=== PATIENT | female | born 1970 | race Caucasian/White ===

== ENCOUNTER 2018-02-07 05:29 | Inpatient (IN) | payer MEDICAID ==
[2018-01-31 13:25] LABS: HEMATOCRIT 34.2 % (36.0-47.0); MEAN CORPUSCULAR HEMOGLOBIN 25.9 pg (27.0-33.4); MEAN CORPUSCULAR VOLUME 81 fl (80-97); PLATELET COUNT 221 10^3/uL (150-450); RED BLOOD COUNT 4.23 10^6/uL (3.72-5.28); RED CELL DISTRIBUTION WIDTH 16.6 % (11.5-14.0); WHITE BLOOD COUNT 6.2 10^3/uL (4.0-10.5)
[2018-01-31 13:38] LABS: ALANINE AMINOTRANSFERASE 32 U/L (9-52); ALBUMIN 4.6 g/dL (3.5-5.0); ALKALINE PHOSPHATASE 54 U/L (38-126); ANION GAP 12 (5-19); ASPARTATE AMINO TRANSFERASE 21 U/L (14-36); BILIRUBIN,DIRECT 0.3 mg/dL (0.0-0.4); BILIRUBIN,TOTAL 0.3 mg/dL (0.2-1.3); BLOOD UREA NITROGEN 12 mg/dL (7-20); CALCIUM 9.6 mg/dL (8.4-10.2); CARBON DIOXIDE 26 mmol/L (22-30); CHLORIDE 102 mmol/L (98-107); GLUCOSE 89 mg/dL (75-110); POTASSIUM 4.2 mmol/L (3.6-5.0); SODIUM 139.7 mmol/L (137-145); TOTAL PROTEIN 7.8 g/dL (6.3-8.2)
[2018-01-31 13:39] LABS: APPEARANCE,URINE CLOUDY; BILIRUBIN,URINE NEGATIVE (NEGATIVE); COLOR,URINE YELLOW; GLUCOSE, URINE NEGATIVE (NEGATIVE); KETONES,URINE NEGATIVE (NEGATIVE); LEUKOCYTE ESTERASE,URINE NEGATIVE (NEGATIVE); NITRITE,URINE NEGATIVE (NEGATIVE); PROTEIN,URINE NEGATIVE (NEGATIVE); UROBILINOGEN,URINE NEGATIVE mg/dL (<2.0)
--- NOTE | 2018-01-31 20:57 | EKG REPORT ---
SEVERITY:- NORMAL ECG - SINUS RHYTHM : Confirmed by: Pura Robertson 31-Jan-2018 20:56:36
[~2018-02-07 05:29] MED LIST: CEFAZOLIN 2 GM/D5W RTU 2 GM/50 ML RTUPB IV PRN; LACTATED RINGERS 1000 ML IV PRN
[2018-02-07] MEDS ORDERED: MIDAZOLAM 2 MG/2 ML INJ ONE (07:01)
[2018-02-07] MEDS ORDERED: FENTANYL CITRATE INJ/PF 250 MCG/5 ML AMPULE ONE (07:01)
[2018-02-07] MEDS ORDERED: ACETAMINOPHEN 100 ML IV ONE (07:01)
[2018-02-07] MEDS ORDERED: PROPOFOL INJ 200 MG/20 ML VIAL IV ONE (07:01)
[2018-02-07] MEDS ORDERED: HYDROMORPHONE HCL INJ/PF 2 MG/ML AMPULE ONE (07:02)
[2018-02-07] MEDS ORDERED: CEFAZOLIN SODIUM 2 GM in DEXTROSE 5%-WATER 100 ML IV PRN (07:06)
[2018-02-07] MEDS ORDERED: FAMOTIDINE INJ/PF 20 MG/2 ML SDV IV ONE (07:29)
[2018-02-07] MEDS ORDERED: SCOPOLAMINE HYDROBROMIDE 1.5 MG PATCH.TD72 ONE (07:30)
[2018-02-07] MEDS ORDERED: ACETAMINOPHEN 100 ML IV PRN (07:49)
[2018-02-07] MEDS ORDERED: PROMETHAZINE HCL INJ 25 MG/1 ML VIAL IV PRN ×2 (07:49→08:21)
[2018-02-07] MEDS ORDERED: OXYCODONE-ACETAMINOPHEN 5-325 MG TABLET PO PRN (07:49)
[2018-02-07] MEDS ORDERED: ACETAMINOPHEN 325 MG TABLET PO PRN (07:49)
[2018-02-07] MEDS ORDERED: HYDROMORPHONE HCL INJ/PF 2 MG/ML AMPULE IV PRN (07:49)
[2018-02-07] MEDS ORDERED: MEPERIDINE HCL/PF INJ 25 MG/1 ML DISP.SYRIN IV PRN (08:21)
[2018-02-07] MEDS ORDERED: MORPHINE SULFATE 10 MG/ML INJ IV PRN (08:21)
[2018-02-07] MEDS ORDERED: FENTANYL CITRATE INJ/PF 100 MCG/2 ML AMPUL IV PRN ×3 (08:21)
[2018-02-07] MEDS ORDERED: DIPHENHYDRAMINE HCL 50 MG/ML VIAL IV PRN (08:21)
[2018-02-07] MEDS ORDERED: METOCLOPRAMIDE HCL INJ/PF 10 MG/2 ML SDV ONE (08:30)
[2018-02-07] MEDS ORDERED: DEXAMETHASONE SOD PHOSPHATE INJ 4 MG/1 ML VIAL ONE (08:30)
[2018-02-07] MEDS ORDERED: ROCURONIUM BROMIDE INJ 50 MG/5 ML VIAL IV ONE (08:30)
[2018-02-07] MEDS ORDERED: NEOSTIGMINE METHYLSULFATE 10 MG/10 ML VIAL ONE (08:30)
[2018-02-07] MEDS ORDERED: GLYCOPYRROLATE INJ 0.4 MG/2 ML VIAL ONE (08:30)
[2018-02-07] MEDS ORDERED: ONDANSETRON HCL INJ/PF 4 MG/2 ML SDV ONE (08:30)
[2018-02-07] MEDS ORDERED: LIDOCAINE 2% INJ-PF (20 MG/ML) 2 ML AMPUL ONE (08:30)
[2018-02-07] MEDS ORDERED: (PENDING PHARMACY ID) (Lisinopril [Lisinopril] 20 MG) PO SCH (10:00)
[2018-02-07] MEDS: FENTANYL CITRATE INJ/PF 100 MCG/2 ML AMPUL ONE ×2 (10:20→10:25)
--- NOTE | 2018-02-07 10:25 | Operative Report ---
Operative Report DATE OF SURGERY: 02/07/18 PREOPERATIVE DIAGNOSIS: Large uterine fibroids menorrhagia dysmenorrhea pelvic pain POSTOPERATIVE DIAGNOSIS: Same OPERATION: Total abdominal hysterectomy bilateral salpingectomy the ovaries were left in place SURGEON: LYNDON DOAN 1ST PLASTICS HEAT WELDER: TRUPTI CODY ANESTHESIA: GA TISSUE REMOVED OR ALTERED: Uterus and cervix fallopian tubes COMPLICATIONS: None ESTIMATED BLOOD LOSS: 500 cc INTRAOPERATIVE FINDINGS: Large uterus normal-appearing ovaries PROCEDURE: Patient was taken the OR and placed in supine position. General anesthesia was induced. Her abdomen perineum and vagina were prepared and draped in a sterile fashion and her bladder was drained with a Dent catheter. Low transverse incision was made with a knife and carried down the level of the fascia. Fascia was nicked in the midline fascial incision extended bilaterally using curved Griggs scissors. The fascia was off the rectus muscles using sharp and blunt dissection. The rectus muscles were in the midline peritoneum was elevated and the abdominal peritoneum entered without incident. The peritoneal incision was extended superiorly and inferiorly taking care not to injure bladder. The Mobius retractor was then placed. The bowel contents were packed back with 3 moist lap sponges. The uterus was grasped with a Geronimo thyroid clamp. The round ligaments were cauterized and cut with the LigaSure device. The anterior leaf of the broad ligament was incised creating a bladder flap. There was a fibroid anteriorly that we had to deal with as well. An incision was made over the fibroid and a myomectomy was done removing the anterior fibroid which allowed better exposure to the bladder and lower uterine segment. The utero-ovarian pedicles were clamped cauterized and cut with the LigaSure device. The fallopian tubes were bilaterally removed bilaterally with the LigaSure device. The uterine arteries were identified and clamped cauterized and cut with LigaSure device. Prior to this the bladder flap was continued to be developed with blunt and sharp dissection. This the bladder off the lower uterine segment and cervix. The uterine fundus was then exercised free from the cervix and passed off the field. This allowed better exposure to the pelvis and the cervix. The cervix was grasped with 2 Dorcas clamps. Her cervix was noted to be quite large and deep in the pelvis. She had a history of a lot of dyspareunia so I wondered make sure that we did remove the cervix as well. The cardinal ligaments were clamped with straight Elio clamps staying close to the cervix cut and ligated with transfixation suture of 0 Vicryl bilaterally. At this point the cervix was excised free from the vaginal cuff using scissors. This was done staying very close to the cervix. The edges of the vaginal cuff were quite grasped with Dorcas clamps. Angle sutures of 0 Vicryl were placed bilaterally. This was done incorporating anterior vaginal mucosa lateral vaginal sidewall and posterior vaginal mucosa and tied. The cuff was then closed with a running locking suture of 0 Vicryl. Closing anterior vaginal cassette 2 posterior vaginal mucosa. Some small areas of bleeding in the midline of the vaginal cuff was made hemostatic with 2 interrupted sutures of 0 Vicryl in a [id number] fashion. The pelvis was then irrigated and suctioned free of fluid. Ureters did not appear dilated at the end of the case. The urine was clear. The surgical pedicles were inspected for bleeding and hemostasis was identified. The retractor and lap sponges were then removed. The abdominal wall peritoneum was closed with a 2-0 chromic. The subfascial tissues were inspected for bleeding and the fascia was then closed with a running 0 Vicryl in 2 segments. The wound was irrigated and John's layer was closed with a 2 oh plain gut stitch and skin closed with 4-0 undyed Vicryl stitch. Patient was taken to recovery room in stable condition.
[2018-02-07] MEDS: HYDROMORPHONE HCL INJ/PF 2 MG/ML AMPULE ONE ×5 (10:40→12:10)
[2018-02-07] MEDS ORDERED: LORAZEPAM INJ 2 MG/1 ML VIAL ONE (11:05)
[2018-02-07] MEDS ORDERED: KETOROLAC TROMETHAMINE INJ/PF 30 MG/1 ML SDV ONE (11:45)
[2018-02-07] MEDS ORDERED: DIPHENHYDRAMINE HCL 50 MG/ML VIAL ONE (12:44)
[2018-02-07] MEDS ORDERED: KETOROLAC TROMETHAMINE INJ/PF 30 MG/1 ML SDV IV SCH (14:00)
[2018-02-07 16:12] LABS: HEMATOCRIT 28.7 % (36.0-47.0); HEMOGLOBIN 9.4 g/dL (12.0-15.5); MEAN CORPUSCULAR HEMOGLOBIN 26.1 pg (27.0-33.4); MEAN CORPUSCULAR HGB CONC 32.9 g/dL (32.0-36.0); MEAN CORPUSCULAR VOLUME 79 fl (80-97); PLATELET COUNT 193 10^3/uL (150-450); RED BLOOD COUNT 3.62 10^6/uL (3.72-5.28); RED CELL DISTRIBUTION WIDTH 15.5 % (11.5-14.0); WHITE BLOOD COUNT 10.7 10^3/uL (4.0-10.5)
[2018-02-07 16:38] LABS: ANION GAP 11 (5-19); BLOOD UREA NITROGEN 11 mg/dL (7-20); CALCIUM 8.8 mg/dL (8.4-10.2); CARBON DIOXIDE 25 mmol/L (22-30); CHLORIDE 104 mmol/L (98-107); GLUCOSE 116 mg/dL (75-110); POTASSIUM 4.5 mmol/L (3.6-5.0); SODIUM 139.9 mmol/L (137-145)
[2018-02-07] MEDS: DOCUSATE SODIUM 100 MG CAPSULE PO SCH (17:55)
[2018-02-07] MEDS: KETOROLAC TROMETHAMINE INJ/PF 30 MG/1 ML SDV IV SCH (17:56)
[2018-02-07] MEDS: OXYCODONE-ACETAMINOPHEN 5-325 MG TABLET PO PRN ×2 (18:28→23:20)
[2018-02-07] MEDS: RINGERS SOLUTION,LACTATED 1,000 ML IV PRN (19:23)
[2018-02-08] MEDS ORDERED: IBUPROFEN 800 MG TABLET PO SCH
[2018-02-08] MEDS: KETOROLAC TROMETHAMINE INJ/PF 30 MG/1 ML SDV IV SCH ×3 (02:04→20:20)
[2018-02-08] MEDS: SIMETHICONE 80 MG TAB.CHEW PO PRN ×2 (02:11→22:27)
[2018-02-08] MEDS: RINGERS SOLUTION,LACTATED 1,000 ML IV PRN (03:03)
[2018-02-08] MEDS: OXYCODONE-ACETAMINOPHEN 5-325 MG TABLET PO PRN ×4 (06:41→20:21)
[2018-02-08 07:07] LABS: HEMATOCRIT 25.2 % (36.0-47.0); HEMOGLOBIN 8.3 g/dL (12.0-15.5); MEAN CORPUSCULAR HEMOGLOBIN 26.2 pg (27.0-33.4); MEAN CORPUSCULAR HGB CONC 33.1 g/dL (32.0-36.0); MEAN CORPUSCULAR VOLUME 79 fl (80-97); PLATELET COUNT 169 10^3/uL (150-450); RED BLOOD COUNT 3.18 10^6/uL (3.72-5.28); RED CELL DISTRIBUTION WIDTH 15.9 % (11.5-14.0); WHITE BLOOD COUNT 8.1 10^3/uL (4.0-10.5)
--- NOTE | 2018-02-08 08:53 | PDOC PROGRESS REPORT ---
Subjective Progress Note for:: 02/08/18 Subjective:: She is doing well, tolerating a diet and ready to ambulate. Positive flatus. Reason For Visit: D25.0 SUBMUCOUS LEIOMYOMA OF UTERUS Physical Exam - Physical Exam Vital Signs: Temp Pulse Resp BP Pulse Ox 99.2 F 92 15 111/58 L 94 02/08/18 07:55 02/08/18 07:55 02/08/18 07:55 02/08/18 07:55 02/08/18 07:55 Intake & Output 02/06/18 02/07/18 02/08/18 11:59 11:59 11:59 Intake Total 2600 2000 Output Total 800 1850 Balance 1800 150 Weight 96.16 kg 91.6 kg General appearance: PRESENT: no acute distress, well-developed, well-nourished GI/Abdominal exam: PRESENT: other - Her incision is clean dry intact with positive bowel sounds Result Laboratory Results: 02/08/18 06:34 02/07/18 15:35 02/07/18 02/07/18 02/08/18 15:35 15:35 06:34 WBC 10.7 H 8.1 RBC 3.62 L 3.18 L Hgb 9.4 L 8.3 L Hct 28.7 L 25.2 L MCV 79 L 79 L MCH 26.1 L 26.2 L MCHC 32.9 33.1 RDW 15.5 H 15.9 H Plt Count 193 169 Sodium 139.9 Potassium 4.5 Chloride 104 Carbon Dioxide 25 Anion Gap 11 BUN 11 Creatinine 0.65 Est GFR ( Amer) > 60 Est GFR (Non-Af Amer) > 60 Glucose 116 H Calcium 8.8 Impressions: Doing well post op day number one Assessment & Plan - Diagnosis (1) Fibroids Qualifiers: Uterine leiomyoma location: intramural and submucous Qualified Code(s): D25.1 - Intramural leiomyoma of uterus; D25.0 - Submucous leiomyoma of uterus; D25.0 - Submucous leiomyoma of uterus Is this a current diagnosis for this admission?: Yes Plan: Ambulate today, saline lock iv, advance diet. - Time Time Spent with patient: 15-24 minutes Medications reviewed and adjusted accordingly: Yes Anticipated discharge: Home Within: within 48 hours
[2018-02-08] MEDS: DOCUSATE SODIUM 100 MG CAPSULE PO SCH ×2 (09:41→19:13)
[2018-02-08] MEDS: LISINOPRIL 10 MG TABLET PO SCH (09:49)
[2018-02-08] MEDS: CITALOPRAM HYDROBROMIDE 20 MG TABLET PO SCH (09:49)
[2018-02-08] MEDS: PRENATAL VITAMIN W DHA CAPSULE PO SCH (09:49)
[2018-02-08] MEDS ORDERED: IBUPROFEN 800 MG TABLET PO ONE (10:00)
[2018-02-08] MEDS: IBUPROFEN 800 MG TABLET PO SCH (19:13)
[2018-02-09] MEDS: IBUPROFEN 800 MG TABLET PO SCH ×3 (00:06→11:44)
[2018-02-09] MEDS: KETOROLAC TROMETHAMINE INJ/PF 30 MG/1 ML SDV IV SCH ×2 (02:36→09:17)
[2018-02-09] MEDS: OXYCODONE-ACETAMINOPHEN 5-325 MG TABLET PO PRN ×2 (02:42→09:05)
[2018-02-09] MEDS: SIMETHICONE 80 MG TAB.CHEW PO PRN (05:43)
[2018-02-09 08:54] VITALS: BP 102/63
[2018-02-09] MEDS: PRENATAL VITAMIN W DHA CAPSULE PO SCH (09:03)
[2018-02-09] MEDS: DOCUSATE SODIUM 100 MG CAPSULE PO SCH (09:04)
--- NOTE | 2018-02-09 09:06 | PDOC DISCHARGE SUMMARY ---
General - Admit/Disc Date/PCP Admission Date/Primary Care Provider: 02/07/18 05:29 LYNDON DOAN MD Discharge Date: 02/09/18 - Discharge Diagnosis (1) Fibroids Is this a current diagnosis for this admission?: Yes - Additional Information Resuscitation Status: Full Code Discharge Diet: As Tolerated, Regular Discharge Activity: Activity As Tolerated, Balance Activity w/Rest, No Lifting Over 10 Pounds, No Lifting/Push/Pulling, Pelvic Rest, No tub bath, Walk Frequently Home Medications: Alprazolam [Xanax 0.5 mg Tablet] 0.5 mg PO DAILY 01/31/18 Citalopram Hydrobromide [Celexa] 20 mg PO DAILY 01/31/18 Lisinopril 20 mg PO DAILY 01/31/18 History of Present Illness Patient complains of: Heavy menses and pelvic pain. History of Present Illness: STANISLAV TREJO is a 47 year old female She reports painful menses and dysparunia. She requests a hyterectomy. Hospital Course Hospital Course: She was admitted and underwent a RASHAD. The night of surgery she did well. Post op day one the catheter was removed and her pain was controlled with percocet. Post op day 2 she was sent home in good condition. Physical Exam - Physical Exam Vital Signs: Temp Pulse Resp BP Pulse Ox 98.3 F 73 15 102/63 98 02/09/18 08:54 02/09/18 08:54 02/09/18 08:54 02/09/18 08:54 02/09/18 08:54 Intake & Output 02/08/18 02/09/18 02/10/18 06:59 06:59 06:59 Intake Total 4600 2710 Output Total 2650 3750 Balance 1950 -1040 Weight 91.6 kg 92.6 kg General appearance: PRESENT: no acute distress, well-developed, well-nourished Vascular exam: PRESENT: normal capillary refill GI/Abdominal exam: PRESENT: other - Her dressing is dry. Positive bowel sounds. Result Laboratory Results: 02/08/18 06:34 02/07/18 15:35 Impressions: POD 2 doing well. Home to rest. no driving 2wks. pelvic rest. Plan Discharge Plan: Home. Follow up next week. Time Spent: Less than 30 Minutes
[2018-02-09] MEDS: CITALOPRAM HYDROBROMIDE 20 MG TABLET PO SCH (09:17)
[2018-02-09] MEDS: LISINOPRIL 10 MG TABLET PO SCH (09:17)
--- NOTE | 2018-04-05 21:33 | PDOC PROGRESS REPORT ---
Subjective Progress Note for:: 04/05/18 Subjective:: The removal of the tubes was for the prevention of ovarian cancer per guidelines. It had nothing to do with the pathology. Reason For Visit: D25.0 SUBMUCOUS LEIOMYOMA OF UTERUS Physical Exam - Physical Exam Vital Signs: Temp Pulse Resp BP Pulse Ox 98.3 F 73 15 102/63 98 02/09/18 08:54 02/09/18 08:54 02/09/18 08:54 02/09/18 08:54 02/09/18 08:54 Result Laboratory Results: 02/08/18 06:34 02/07/18 15:35 Assessment & Plan - Diagnosis (1) Fibroids Qualifiers: Uterine leiomyoma location: intramural and submucous Qualified Code(s): D25.1 - Intramural leiomyoma of uterus; D25.0 - Submucous leiomyoma of uterus; D25.0 - Submucous leiomyoma of uterus Is this a current diagnosis for this admission?: Yes
== END 2018-02-09 12:38 | disposition home or self-care (01) | DRG 743 ==
LOC: INOR 05:29 → 2N 14:05
PROVIDERS: ADMIT Obstetrics & Gynecology; ATTEND Obstetrics & Gynecology
PROC: 0UT70ZZ Resection of Bilateral Fallopian Tubes, Open Approach (ICD-10-PCS; 2018-02-07)
PROC: 0UT90ZZ Resection of Uterus, Open Approach (ICD-10-PCS; principal; 2018-02-07 07:30)
DX: D25.0 Submucous leiomyoma of uterus (principal); N92.0 Excessive and frequent menstruation with regular cycle; D64.9 Anemia, unspecified; D25.1 Intramural leiomyoma of uterus; Z91.040 Latex allergy status; Z87.891 Personal history of nicotine dependence; Z83.3 Family history of diabetes mellitus; Z82.3 Family history of stroke; Z82.49 Family history of ischemic heart disease and other diseases of the circulatory system; Z81.0 Family history of intellectual disabilities
CPT/HCPCS: 36415; 80048; 80053; 81001; 81025; 840; 85027; 86850; 86900; 86901; 88307; 93005; 93010; 94799; J0131; J0690; J1100; J1170; J1200; J1885; J2060; J2250; J2405; J2704; J2765; J3010; J3490; J7120; S0028